=== PATIENT | male | born 1990 | race Caucasian/White ===

== ENCOUNTER 2016-12-09 20:24 | Emergency (ER) | payer MEDICAID | END 2016-12-09 23:45 | disposition home or self-care (01) | LOC: D.ER 20:24 | DX: S09.90XA Unspecified injury of head, initial encounter (principal); X58.XXXA Exposure to other specified factors, initial encounter; Y93.89 Activity, other specified; Y92.89 Other specified places as the place of occurrence of the external cause; S01.01XA Laceration without foreign body of scalp, initial encounter; G47.30 Sleep apnea, unspecified ==

== ENCOUNTER 2016-12-17 07:34 | Emergency (ER) | payer MEDICAID | END 2016-12-17 08:53 | disposition home or self-care (01) | LOC: D.ER 07:34 | DX: S01.91XD Laceration without foreign body of unspecified part of head, subsequent encounter (principal); X58.XXXD Exposure to other specified factors, subsequent encounter; Y92.89 Other specified places as the place of occurrence of the external cause; Z48.02 Encounter for removal of sutures; G47.30 Sleep apnea, unspecified ==